=== PATIENT | male | born 1950 | race Caucasian/White ===

== ENCOUNTER 2020-06-07 17:07 | Observation (INO) | payer MEDICARE, OTHER ==
[~2020-06-07] VITALS: Ht 175.3 cm; Wt 94.3 kg
[2020-06-07 17:52] LABS: HEMOGLOBIN 13.5 gm/dl (14.0-17.5); RED BLOOD COUNT 4.91 M/UL (4.20-5.50); WHITE BLOOD COUNT 7.5 K/UL (4.5-11.0)
[2020-06-07 18:08] LABS: BUN/CREATININE RATIO 20 (0-10)
[2020-06-07] MEDS ORDERED: JARDIANCE25 MG PO (20:58)
[2020-06-07] MEDS ORDERED: GLUCOPHAGE XR500 M1 PO (20:58)
[2020-06-07] MEDS ORDERED: RABEPRAZOLE SOD20 MG PO (20:59)
[2020-06-07] MEDS ORDERED: TELMISARTAN80 MG PO (21:00)
[2020-06-07] MEDS ORDERED: ALDACTONE 25MG25 MG PO (21:00)
[2020-06-08] MEDS ORDERED: BACTRIM DS TAB1 EACH PO (14:27)
== END 2020-06-08 15:38 | disposition home or self-care (01) ==
LOC: ER1 17:07 → CDU 17:51 → MED SURG 4 17:51
PROVIDERS: Physician Assistant Medical; ADMIT Surgery
DX: S81.811A Laceration without foreign body, right lower leg, initial encounter (principal); E11.9 Type 2 diabetes mellitus without complications; K21.9 Gastro-esophageal reflux disease without esophagitis; Z88.0 Allergy status to penicillin; Z79.84 Long term (current) use of oral hypoglycemic drugs; Z79.899 Other long term (current) drug therapy; Z20.822 Contact with and (suspected) exposure to COVID-19; W26.8XXA Contact with other sharp object(s), not elsewhere classified, initial encounter
CPT/HCPCS: 73590; 80053; 85025; 85610; 90471; 90714; 90715; 96374; 96375; 96376; 99284; G0378; J0690; J1100; J2001; J2270; J2405; J2704; J3010; J7030; J7120; U0002

== ENCOUNTER → 2020-12-06 | Outpatient (CLI) | payer MEDICARE, OTHER ==
[~2020-12-06] MED LIST: ALDACTONE 25MG25 MG PO; BACTRIM DS TAB1 EACH PO; GLUCOPHAGE XR500 M1 PO; JARDIANCE25 MG PO; RABEPRAZOLE SOD20 MG PO; TELMISARTAN80 MG PO
== END ==
LOC: MRI 10:23
DX: Z01.812 Encounter for preprocedural laboratory examination (principal); H53.2 Diplopia; R90.82 White matter disease, unspecified
CPT/HCPCS: 36415; 70553; 82565; A9577